=== PATIENT | female | born 1945 | race Caucasian/White ===

== ENCOUNTER → 2018-06-22 07:50 | Outpatient (CLI) | payer OTHER, SELFPAY ==
[2018-06-22 09:54] LABS: Add Manual Diff / Slide Review NO; Basophils Percent Auto 1.2 % (0-2); Eosinophils Percent Auto 3.4 % (2-4); Hemoglobin 13.2 g/dL (12.0-16.0); Lymphocytes Percent Auto 25.6 % (25-40); Mean Corpuscular HGB Conc 33.9 % (30-36); Mean Corpuscular Hemoglobin 32.5 PG (26-34); Mean Corpuscular Volume 95.9 fL (80-100); Monocytes Percent Auto 9.3 % (3-14); Neutrophils Absolute Auto 3800 /uL (3000-5900); Neutrophils Percent Auto 60.5 % (50-75); Platelet Count 261 X10^3/uL (150-400); Red Blood Cell Count 4.07 X10^6/uL (4.0-5.2); Red Cell Distribution Width 12.9 % (11.6-14.8); White Blood Cell Count 6.3 X10^3/uL (4.5-11.0)
[2018-06-22 10:21] LABS: Alanine Aminotransferase 23 IU/L (9-52); Albumin 4.3 g/dL (3.5-5.0); Albumin Globulin Ratio 1.3 (1.0-2.8); Alkaline Phosphatase 88 U/L (38-126); Aspartate Aminotransferase 22 IU/L (14-36); BUN Creatinine Ratio 17.5 (6-22); Bilirubin Total 0.4 mg/dL (0.2-1.3); Blood Urea Nitrogen 14 mg/dL (7-17); Calcium 9.9 mg/dL (8.4-10.2); Carbon Dioxide 34 mmol/L (22-32); Chloride 98 mmol/L (98-107); Cholesterol 212 mg/dL (140-199); Estimated Glomerular Filt Rate > 60.0 mL/min (>60); Globulin 3.2 g/dL (1.7-4.1); Glucose 94 mg/dL (80-110); HDL Cholesterol 97 mg/dL (40-60); HEMOLYSIS < 15 (0-50); LDL Cholesterol Calculated 87 mg/dL (<100); Potassium 4.1 mmol/L (3.4-5.1); Sodium 139 mmol/L (137-145); Total Protein 7.5 g/dL (6.3-8.2); Triglycerides 139 mg/dL (35-150)
[2018-06-22 11:11] LABS: TSH w/ Reflex to FT4 3.31 uIU/mL (0.47-4.68)
== END ==
PROVIDERS: PCP Internal Medicine; Visit Provider Internal Medicine
DX: I10 Essential (primary) hypertension (principal); Z86.39 Personal history of other endocrine, nutritional and metabolic disease
CPT/HCPCS: 36415; 80053; 80061; 84443; 85025

== ENCOUNTER → 2018-07-10 09:23 | Outpatient (CLI) | payer OTHER, SELFPAY ==
[2018-07-12 16:17] LABS: Fecal Immunochemical Test NOT DETECTED
== END ==
PROVIDERS: PCP Internal Medicine; Visit Provider Internal Medicine
DX: Z12.11 Encounter for screening for malignant neoplasm of colon (principal)
CPT/HCPCS: 82274

== ENCOUNTER → 2018-07-17 12:43 | Outpatient (CLI) | payer OTHER, SELFPAY ==
--- NOTE | 2018-07-17 | DI.MG.S_ITS ---
BILATERAL DIGITAL SCREENING MAMMOGRAM 3D/2D WITH CAD: 07/17/2018 CLINICAL: Routine screening. Family history of breast cancer. Comparison is made to exams dated: 07/11/2017 mammogram, 07/15/2016 mammogram, and 07/14/2015 mammogram - [facility]. The tissue of both breasts is heterogeneously dense. This may lower the sensitivity of mammography. Current study was also evaluated with a Computer Aided Detection (CAD) system. No significant masses, calcifications, or other findings are seen in either breast. There has been no significant interval change. IMPRESSION: NEGATIVE There is no mammographic evidence of malignancy. A 1 year screening mammogram is recommended. This exam was interpreted at Station ID: [id number]. NOTE: For mammograms, a report in lay terms will be sent to the patient. Approximately 15% of breast malignancies will not be visualized mammographically. In the management of a palpable breast mass, a negative mammogram must not discourage biopsy of a clinically suspicious lesion. Electronically Signed By: Jason beal/deena:07/17/2018 14:44:43 letter sent: Normal Exam ACR BI-RADS Category 1: Negative 3341F
== END ==
PROVIDERS: Family Provider Internal Medicine; PCP Internal Medicine; Visit Provider Internal Medicine
DX: Z12.31 Encounter for screening mammogram for malignant neoplasm of breast (principal); Z80.3 Family history of malignant neoplasm of breast
CPT/HCPCS: 77063; 77067

== ENCOUNTER → 2018-09-04 15:16 | Outpatient (CLI) | payer OTHER, SELFPAY ==
--- NOTE | 2018-09-04 15:18 | DI.RAD.S_ITS ---
PROCEDURE: XR KNEE RT 3V INDICATIONS: chronic right knee pain TECHNIQUE: A 3 views of the knee were acquired. COMPARISON: None. FINDINGS: Bones: No fractures or dislocations but there is a moderate degree of lateral compartment joint space narrowing and a mild degree of such narrowing at the medial compartment and the patellofemoral joint. No suspicious bony lesions. Soft tissues: No joint effusion. No suspicious soft tissue calcifications. IMPRESSION: No trauma found. Mild to moderate knee joint osteoarthritis involving all 3 compartments, most prominent at the lateral compartment. No effusion or loose body seen. Dictated by: Hari Ortega M.D. on 09/04/2018 at 16:32 Approved by: Hari Ortega M.D. on 09/04/2018 at 16:33
== END ==
PROVIDERS: Family Provider Internal Medicine; PCP Internal Medicine; Visit Provider Internal Medicine
DX: M25.561 Pain in right knee (principal); M17.11 Unilateral primary osteoarthritis, right knee; G89.29 Other chronic pain
CPT/HCPCS: 73562

== ENCOUNTER → 2019-07-18 11:17 | Outpatient (CLI) | payer OTHER, SELFPAY ==
--- NOTE | 2019-07-18 | DI.MG.S_ITS ---
BILATERAL DIGITAL SCREENING MAMMOGRAM 3D/2D WITH CAD: 07/18/2019 CLINICAL: Routine screening. Family history of breast cancer. Comparison is made to exams dated: 07/17/2018 mammogram, 07/11/2017 mammogram, and 07/28/2016 mammogram - [facility]. The tissue of both breasts is heterogeneously dense. This may lower the sensitivity of mammography. Current study was also evaluated with a Computer Aided Detection (CAD) system. No significant masses, calcifications, or other findings are seen in either breast. There has been no significant interval change. IMPRESSION: NEGATIVE There is no mammographic evidence of malignancy. A 1 year screening mammogram is recommended. This exam was interpreted at Station ID: [id number]. NOTE: For mammograms, a report in lay terms will be sent to the patient. Approximately 15% of breast malignancies will not be visualized mammographically. In the management of a palpable breast mass, a negative mammogram must not discourage biopsy of a clinically suspicious lesion. Electronically Signed By: Alcon mosley/deena:07/18/2019 16:51:31 letter sent: Normal Exam ACR BI-RADS Category 1: Negative 3341F
== END ==
PROVIDERS: PCP Internal Medicine; Visit Provider Internal Medicine
DX: Z13.21 Encounter for screening for nutritional disorder (principal); Z80.3 Family history of malignant neoplasm of breast
CPT/HCPCS: 77063; 77067

== ENCOUNTER → 2019-08-23 12:43 | Outpatient (CLI) | payer OTHER, SELFPAY | PROVIDERS: PCP Internal Medicine; Visit Provider Internal Medicine | DX: Z13.820 Encounter for screening for osteoporosis (principal); Z78.0 Asymptomatic menopausal state; Z90.722 Acquired absence of ovaries, bilateral | CPT/HCPCS: 77080 ==

== ENCOUNTER → 2020-12-16 17:30 | Outpatient (CLI) | payer MEDICARE, SELFPAY ==
[2020-12-16] MEDS: COVID-19 VACC #1, MRNA(MOD) 100 MCG/0.5 ML VIAL IM (18:05)
== END ==
PROVIDERS: PCP Internal Medicine; Visit Provider Internal Medicine
DX: Z23 Encounter for immunization (principal)
CPT/HCPCS: 0011A; 91301

== ENCOUNTER → 2021-01-14 12:22 | Outpatient (CLI) | payer MEDICARE, SELFPAY ==
[2021-01-14] MEDS: COVID-19 VACC #2, MRNA(MOD) 100 MCG/0.5 ML VIAL IM (12:29)
== END ==
PROVIDERS: PCP Internal Medicine; Visit Provider Internal Medicine
DX: Z23 Encounter for immunization (principal)
CPT/HCPCS: 0012A; 91301

== ENCOUNTER → 2021-09-16 17:51 | Outpatient (CLI) | payer OTHER, SELFPAY ==
--- NOTE | 2021-09-16 | DI.MG.S_ITS ---
BILATERAL DIGITAL SCREENING MAMMOGRAM 3D/2D WITH CAD: 09/16/2021 CLINICAL: Routine screening. Family history of breast cancer. Comparison is made to exams dated: 07/18/2019 mammogram, 07/17/2018 mammogram, 07/11/2017 mammogram, 07/15/2016 mammogram, and 07/14/2015 mammogram - [facility]. The tissue of both breasts is heterogeneously dense. This may lower the sensitivity of mammography. Current study was also evaluated with a Computer Aided Detection (CAD) system. No significant masses, calcifications, or other findings are seen in either breast. There has been no significant interval change. IMPRESSION: NEGATIVE There is no mammographic evidence of malignancy. A 1 year screening mammogram is recommended. This exam was interpreted at Station ID: [id number]. NOTE: For mammograms, a report in lay terms will be sent to the patient. Approximately 15% of breast malignancies will not be visualized mammographically. In the management of a palpable breast mass, a negative mammogram must not discourage biopsy of a clinically suspicious lesion. Electronically Signed By: Tariq herrmann/deena:09/17/2021 08:54:20 letter sent: Normal Exam ACR BI-RADS Category 1: Negative 3341F
== END ==
PROVIDERS: PCP Internal Medicine; Referring Provider Internal Medicine; Visit Provider Internal Medicine
DX: Z12.31 Encounter for screening mammogram for malignant neoplasm of breast (principal)
CPT/HCPCS: 77063; 77067

== ENCOUNTER → 2021-09-22 10:05 | Outpatient (CLI) | payer OTHER, SELFPAY ==
--- NOTE | 2021-09-22 | DI.RAD.S_ITS ---
PROCEDURE: XR WRIST LT MIN 3V INDICATIONS: Left Wrist Pain TECHNIQUE: 3 views of the wrist were acquired. COMPARISON: None. FINDINGS: Bones: No acute, displaced fracture. No suspicious bony lesions. Moderate to advanced arthrosis of the 1st carpometacarpal articulation. Widening of the scapholunate interval. Scaphoid view: Intact. Soft tissues: No suspicious soft tissue calcifications. IMPRESSION: No acute abnormality. Dictated by: Cb Pacheco M.D. on 09/22/2021 at 10:40 Approved by: Cb Pacheco M.D. on 09/22/2021 at 10:42
== END ==
PROVIDERS: PCP Internal Medicine; Referring Provider Internal Medicine; Visit Provider Internal Medicine
DX: M25.532 Pain in left wrist (principal)
CPT/HCPCS: 73110

== ENCOUNTER → 2022-03-01 12:25 | Outpatient (CLI) | payer OTHER, SELFPAY ==
--- NOTE | 2022-03-01 | DI.MRI.S_ITS ---
PROCEDURE: MR STROKE Pre- and post-contrast brain MRI, non-contrast brain MR angiogram, pre- and postcontrast neck MR angiogram INDICATIONS: DEMENTIA TECHNIQUE: Brain: Noncontrast axial T1 spin echo, axial T2 fast spin echo, sagittal and axial FLAIR, coronal T2 fast spin echo, axial gradient echo, axial diffusion and ADC through the brain. After the administration of contrast, axial 3D VIBE of the cranial vasculature and brain. Brain MRA: Non-contrast 3-D time of flight MR angiogram, with multiple widbsvr-nbwwwkaph-anrwccivlz (MIP) reformats performed. Neck MRA: Axial and sagittal TruFISP through the neck. Coronal dynamic MR angiogram during administration of contrast in the arterial and venous phases, with 3-dimenstional xrxouqc-esnpvywgc-zqiywqmspo (MIP) reformats constructed from subtraction images. COMPARISON: None. FINDINGS: Image quality: Excellent. BRAIN: The ventricular system and cortical sulci demonstrate atrophy, consistent for the patient's stated age. There are areas of increased T2/FLAIR signal intensity within the periventricular and subcortical white matter. There is no acute intra-or extra axial fluid collection. No acute hemorrhage, mass lesion or midline shift. Brainstem is unremarkable. There are no areas of restricted diffusion. Globes are symmetrical. Sinuses are aerated. Osseous structures are intact. BRAIN MR ANGIOGRAM: Anterior circulation: Intracranial internal carotid arteries are normal in size and enhancement. The flow within the paired anterior cerebral arteries is normal and symmetric. The flow within the middle cerebral arteries is normal and symmetric. The anterior communicating artery is seen. No stenoses, occlusions, or aneurysms. Posterior circulation: The visualized portions of the vertebral arteries demonstrate normal caliber, and join to form a normal appearing basilar artery. The flow within the posterior cerebral arteries is normal and symmetric. No stenoses, occlusions, or aneurysms. NECK MR ANGIOGRAM: The origins of the left and right common, internal and external carotid arteries demonstrate no areas of hemodynamically significant stenosis, vascular occlusion or aneurysmal dilation. Origins of the left and right vertebral arteries demonstrate no areas of hemodynamically significant stenosis, vascular occlusion or aneurysmal dilation. 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 Limited, visualized portions of the subclavian vasculature are unremarkable. IMPRESSION: 1. No acute intracranial process. 2. Moderate atrophy and chronic microvascular ischemic changes. 3. No areas of hemodynamically significant stenosis, vascular occlusion or aneurysmal dilation within the anterior or posterior circulation. 4. No areas of hemodynamically significant stenosis, vascular occlusion or aneurysmal dilation within the neck vasculature. Dictated by: Oxana Miller M.D. on 03/01/2022 at 15:25 Approved by: Oxana Miller M.D. on 03/01/2022 at 15:46
== END ==
PROVIDERS: PCP Internal Medicine; Referring Provider Internal Medicine; Visit Provider Internal Medicine
DX: F03.90 Unspecified dementia, unspecified severity, without behavioral disturbance, psychotic disturbance, mood disturbance, and anxiety (principal)
CPT/HCPCS: 70548; 70553; A9579

== ENCOUNTER → 2022-11-17 09:55 | Outpatient (CLI) | payer OTHER, SELFPAY ==
[2022-11-17 11:59] LABS: COVID19 -Nasal RAPID Negative (Negative)
== END ==
PROVIDERS: PCP Internal Medicine; Visit Provider Surgery
DX: Z20.822 Contact with and (suspected) exposure to COVID-19 (principal); Z01.812 Encounter for preprocedural laboratory examination
CPT/HCPCS: 87635; C9803

== ENCOUNTER 2022-11-18 08:10 | Day surgery (SDC) | payer OTHER, SELFPAY ==
--- NOTE | 2022-11-18 | PATH_ITS ---
[facility] Accession Number: [id number] . 01 Material submitted: . colon - CECAL POLYPS . 01 Diagnosis: A. Cecal Polyps, Polypectomy: Fragments of tubular adenoma. RICK 11/23/2022 1005 Local . 01 Electronically signed: . Darlene Buchanan MD, Pathologist NPI- [id number] . 01 Gross description: . CECAL POLYPS: Received in formalin are multiple fragment(s) of [place], soft tissue measuring 1.7 x 0.5 x 0.1 cm in aggregate submitted entirely in 1 cassette(s) /CPE 11/19/2022 0534 Local . 01 Pathologist provided ICD-10: D12.6 . 01 CPT . 502885 Performed at: 01 [facility] [address] [place] [id number] MD Alcon Marshall MD Phone: [phone]
[2022-11-18 08:30] VITALS: BP 149/86; PULSE 89; RESP 18; TEMP 36.4; O2SAT 100; BMI 21.7
[2022-11-18] MEDS: LACTATED RINGERS 1,000 ML 150 ML IV (08:35)
--- NOTE | 2022-11-18 09:10 | PM.HP.1 ---
History of Present Illness History of Present Illness Date Patient Seen: 11/18/22 Time Patient Seen: 09:10 Chief complaint: SDC Narrative: Nicolle is a 77-year-old woman who is here because of a positive fit test. She has had prior colonoscopies but she is not sure when her last 1 was. She believes no polyps were found. Patient History Medical History (Updated 11/18/22 @ 09:11 by Javon Browne MD) Actinic keratosis (~1989) Bilateral bunions (~1969) Endometriosis Hypertension (1974) Osteoarthritis (~2000) Psoriasis (2009) Urinary incontinence Uterine cancer (1998) Surgical History (Updated 07/03/18 @ 13:55 by Pau Griffiths) Anesthesia History of tonsillectomy S/P total abdominal hysterectomy and bilateral salpingo-oophorectomy (1998) Status post arthroscopy Status post bunionectomy (1987) Status post Mohs surgery (02/2008) Family & Social History Family History (Updated 07/03/18 @ 14:08 by Pau Griffiths) Father CAD (coronary artery disease) Parkinson's disease Daughter Alcoholism Korsakoff syndrome Wheelchair bound Mother Rupture of hernia Peritonitis Grandmother Breast cancer Sister No problems noted. Social History: household members spouse Tobacco & Substance use: Smoking Status Never smoker alcohol intake never Substance Use Type does not use Meds Home Medications and Allergies Home Medications Medication Instructions Recorded Confirmed Type CA PANTOTHENATE/FOLIC ACID/VIT 1 tab PO Q DAY ##0 11/29/11 09/04/18 History (MULTIVITAMIN) amlodipine 10 mg tablet 10 mg PO DAILY #90 tabs 07/04/18 11/18/22 Rx estradiol 1 mg tablet 1 mg PO QDAY #90 tabs 07/04/18 11/18/22 Rx hydrochlorothiazide 25 mg tablet 25 mg PO QDAY #90 tabs 07/04/18 11/18/22 Rx losartan 100 mg tablet 100 mg PO QDAY #90 tabs 07/04/18 11/18/22 Rx potassium chloride 10 mEq 10 meq PO [facility] #90 tabs 07/04/18 09/04/18 Rx tablet,extended release(part/cryst) (Klor-Con M) betamethasone dipropionate 0.05 % 1 applictn topical BID #30 grams 11/01/18 Rx topical ointment Allergies Allergy/AdvReac Type Severity Reaction Status Date / Time No Known Drug Allergies Allergy Unverified 09/04/18 14:15 Exam Vital Signs (past 8 hours): - 11/18/22 08:30 Temperature 97.5 F L Pulse Rate 89 Respiratory Rate 18 Blood Pressure 149/86 H Pulse Oximetry 100 Oxygen Delivery Method Room Air Oxygen Delivery Method Room Air Const General: No acute distress Assessment & Plan Assessment and plan (1) Positive FIT (fecal immunochemical test): Status: Acute Plan We discussed the risks benefits and rationale for colonoscopy and she would like to proceed. Time Spent With Patient Critical Care time: I spent a total of [] minutes of critical care time on this patient's care today; this time is exclusive of procedural time.
[2022-11-18 10:07] VITALS: BP 128/68; PULSE 81; RESP 16; TEMP 36.6; O2SAT 98
--- NOTE | 2022-11-18 10:09 | PM.OP.COLON ---
Operative Date/Time/Diagnoses Date of procedure: 11/18/22 Time of procedure: 10:10 Pre-op diagnosis: Positive fit test Post-op diagnosis: same Procedure & Clinicians Study performed: Colonoscopy Same procedure as scheduled: Yes Surgeon: Javon Browne Procedure Notes Procedure in detail: Surgeon: Javon Browne MD Anesthesia: Eddie Nelson D.O. Procedure: The patient was brought to the endoscopy suite, placed in left lateral decubitus position. The patient was connected to monitoring devices. A time-out was performed. Sedation was administered. Once the patient was adequately sedated, a digital rectal exam was performed and was normal. The scope was then inserted and advanced to the cecum where the appendiceal orifice was identified and photographed. The scope was then slowly withdrawn over greater than 6 minutes. The mucosa was thoroughly inspected. There were 2 polyps in the cecum. One was a flat polyp which was roughly 1.5 cm and was removed piecemeal using a combination of hot and cold snare. The second polyp was approximately 8 mm and more pedunculated shape and was removed with cold snare. The polyps were sent together. The rest of the colon was normal. The scope was retroflexed in the rectum. No other abnormalities were seen. The scope was straightened and removed. The patient was awakened and brought to recovery. Scope withdrawal time: 30 minutes Sedation time: 42 minutes EBL: 5 mL Findings: 1.5 cm flat polyp and 8 mm pedunculated polyp in the cecum Post-procedure Disposition: PACU
[2022-11-18 10:15] VITALS: BP 129/75; PULSE 71; RESP 13; TEMP 36.2; O2SAT 99
[2022-11-18 10:25] VITALS: BP 140/64; PULSE 71; RESP 18; TEMP 36.6; O2SAT 97
[2022-11-18 10:47] VITALS: BP 148/88; PULSE 82; RESP 16; O2SAT 98
== END 2022-11-18 10:40 | disposition home or self-care (01) ==
PROVIDERS: PCP Internal Medicine; Referring Provider Surgery; Visit Provider Surgery
PROC: 0DJD8ZZ Inspection of Lower Intestinal Tract, Via Natural or Artificial Opening Endoscopic (ICD-10-PCS; CPT 45378; principal; 2022-11-18 09:15)
DX: R19.5 Other fecal abnormalities (principal); D12.0 Benign neoplasm of cecum
CPT/HCPCS: 45385; J2704

== ENCOUNTER 2023-11-16 18:31 | Emergency (ER) | payer OTHER, SELFPAY ==
[2023-11-16 18:29] VITALS: BP 176/88; PULSE 71; RESP 16; TEMP 36.2; O2SAT 97; BMI 22.4
--- NOTE | 2023-11-16 19:52 | ED.FALL ---
HPI - Fall General Chief Complaint: Fall Stated Complaint: fall no thinners Time Seen by Provider: 11/16/23 19:12 Source: patient and family Mode of arrival: EMS Limitations: other (Dementia) History of Present Illness HPI Narrative: 78-year-old female who arrived by EMS for evaluation of what appeared to be a fall at home. Patient's states that the patient has a history of Alzheimer's. She does not remember the event. Reports no discomfort. states he was sitting on a chair watching the news when he states that he heard a commotion in the kitchen. He noticed that the patient was on the ground. No loss of consciousness. No bleeding. No reports of any injuries. He thought that throughout the day her balance has been more ?off? than what it has been although they did go for a hike today. He has been eating and drinking like normal. Patient is able to provide only a small portion of the HPI and review of systems Related Data Home Medications Medication Instructions Recorded Confirmed CA PANTOTHENATE/FOLIC ACID/VIT 1 tab PO Q DAY ##0 11/29/11 09/04/18 (MULTIVITAMIN) Previous Rx's Medication Instructions Recorded amlodipine 10 mg tablet 10 mg PO DAILY #90 tabs 07/04/18 estradiol 1 mg tablet 1 mg PO QDAY #90 tabs 07/04/18 hydrochlorothiazide 25 mg tablet 25 mg PO QDAY #90 tabs 07/04/18 losartan 100 mg tablet 100 mg PO QDAY #90 tabs 07/04/18 potassium chloride 10 mEq 10 meq PO [facility] #90 tabs 07/04/18 tablet,extended release(part/cryst) (Klor-Con M) betamethasone dipropionate 0.05 % 1 applictn topical BID #30 grams 11/01/18 topical ointment Allergies Allergy/AdvReac Type Severity Reaction Status Date / Time No Known Drug Allergies Allergy Unverified 11/16/23 18:29 Review of Systems Constitutional Constitutional: Reports system reviewed and no additional complaints, except as documented Musculoskeletal Musculoskeletal: Reports system reviewed and no additional complaints, except as documented Integumentary/Breasts Skin/Breast: Reports system reviewed and no additional complaints, except as documented Neurologic Neurologic: Reports system reviewed and no additional complaints, except as documented Patient History Medical History Bilateral bunions (~1969) Endometriosis Uterine cancer (1998) Actinic keratosis (~1989) Urinary incontinence Psoriasis (2009) Osteoarthritis (~2000) Hypertension (1974) Surgical History (Updated 07/03/18 @ 13:55 by Pau Griffiths) Anesthesia Status post Mohs surgery (02/2008) Status post bunionectomy (1987) Status post arthroscopy History of tonsillectomy S/P total abdominal hysterectomy and bilateral salpingo-oophorectomy (1998) Family History (Updated 07/03/18 @ 14:08 by Pau Griffiths) Father CAD (coronary artery disease) Parkinson's disease Daughter Alcoholism Korsakoff syndrome Wheelchair bound Mother Rupture of hernia Peritonitis Grandmother Breast cancer Sister No problems noted. Social History household members: spouse Smoking Status: Never smoker alcohol intake: never Smoking Status: Never smoker Substance Use Type: does not use Exam Initial Vital Signs Initial Vital Signs: Vital Signs Temperature 97.2 F L 11/16/23 18:29 Pulse Rate 71 11/16/23 18:29 Respiratory Rate 16 11/16/23 18:29 Blood Pressure 176/88 H 11/16/23 18:29 Pulse Oximetry 97 11/16/23 18:29 Oxygen Delivery Method Room Air 11/16/23 18:29 HENMT Head: normal to inspection and normocephalic Resp Effort & Inspection: normal respiratory effort Cardio Rate: regular rate Neuro Gait: normal gait Extrem Other: No gross deformities, is able to move all 4 extremities Course Orders Ordered: ED Orders 11/16/23 18:30 Basic Metabolic Panel Stat Complete Blood Count AUTO DIFF Stat 11/16/23 19:58 Urinalysis and Microscopic Stat Urine Culture Stat Vital Signs Vital signs: Vital Signs - 8 hr 11/16/23 18:29 11/16/23 20:26 Temperature 97.2 F L Pulse Rate 71 70 Respiratory Rate 16 18 Blood Pressure 176/88 H 187/96 H Pulse Oximetry 97 97 Oxygen Delivery Method Room Air Room Air MDM - Fall Lab Data Attestation: I reviewed the patient's lab results. 11/16/23 18:30 11/16/23 18:30 Labs: Lab Results 11/16/23 11/16/23 Range/Units 18:30 19:58 WBC 10.4 (4.5-11.0) X10^3/uL RBC 4.28 (4.0-5.2) X10^6/uL Hgb 14.0 (12.0-16.0) g/dL Hct 41.0 (36-46) % MCV 95.8 (80-100) fL MCH 32.8 (26-34) PG MCHC 34.2 (30-36) % RDW 12.4 (11.6-14.8) % Plt Count 283 (150-400) X10^3/uL Neut % (Auto) 57.8 (50-75) % Lymph % (Auto) 31.6 (25-40) % [place] % (Auto) 8.3 (3-14) % Eos % (Auto) 1.6 L (2-4) % Baso % (Auto) 0.7 (0-2) % Neut # (Auto) 6000 (8793-4892) /uL Lymph # (Auto) 3300 (5122-2603) /uL [place] # (Auto) 900 (0-900) /uL Eos # (Auto) 200 (0-450) /uL Baso # (Auto) 100 (0-100) /uL Sodium 139 (137-145) mmol/L Potassium 3.2 L (3.4-5.1) mmol/L Chloride 99 (98-107) mmol/L Carbon Dioxide 30 (22-32) mmol/L BUN 25 H (7-17) mg/dL Creatinine 0.62 (0.52-1.04) mg/dL Estimated GFR > 60 (>60) mL/min BUN/Creatinine Ratio 40.3 H (6-22) Glucose 95 (80-110) mg/dL Calcium 10.6 H (8.4-10.2) mg/dL Urine Color Yellow Urine Appearance Clear Urine pH 7.0 (4.5-8.0) Ur Specific [place] <=1.005 (1.000-1.035) Urine Protein Negative (Negative) Urine Glucose (UA) Negative (Negative) g/dL Urine Ketones Negative (NEGATIVE) Urine Occult Blood Negative (Negative) Urine Nitrate Negative (Negative) Urine Bilirubin Negative (NEGATIVE) Urine Urobilinogen 0.2 (0.2) E.U./dL Ur Leukocyte Esterase 1+ H (NEGATIVE) Urine RBC 0-1/hpf (0-5/HPF) Urine WBC 1-5/hpf (0-5/HPF) Ur Squamous Epith Cells 0-1 /hpf (0-5/HPF) Urine Bacteria Few (2-10) H (None) Ur Culture Indicated? Specimen cultured MDM Narrative Medical decision making narrative: Patient has no external signs of any injuries. I discussed with the obtaining a head CT because we are unsure as to whether not the patient actually hit her head and she is unable to provide any specific information about the fall. The would like to hold on doing that for now. She was able to ambulate here in the emergency department. states that she is much better than what she was earlier today. Her labs are unremarkable. We will hold on a further workup for now. No indication of any infection. Will discharge patient home with return precautions. expressed understanding and agreement with plan. Discharge Plan Departure Patient Disposition: Home Clinical Impression: Alzheimer's dementia, Fall Instructions: How to Prevent Falls Activity Restrictions/Additional Instructions: I recommend that she continue to take all of her medications as directed. Contact your primary care doctor for a follow-up. Return to the emergency department for new symptoms. Prescriptions: No Action CA PANTOTHENATE/FOLIC ACID/VIT (MULTIVITAMIN) 1 tab PO Q DAY Qty: 0 betamethasone dipropionate 0.05 % ointment 1 applictn TOP BID Qty: 30 0RF Rx Instructions: Apply twice daily to affected area until clear. amlodipine 10 mg tablet 10 mg PO DAILY Qty: 90 3RF estradiol 1 mg tablet 1 mg PO QDAY Qty: 90 3RF hydrochlorothiazide 25 mg tablet 25 mg PO QDAY Qty: 90 3RF losartan 100 mg tablet 100 mg PO QDAY Qty: 90 3RF potassium chloride [Klor-Con M10] 10 mEq tablet,ER particles/crystals 10 meq PO [facility] Qty: 90 3RF Referrals: Danielle Mujica ARNP [Primary Care Provider] - Stand Alone Forms: Patient Portal/API
[2023-11-16 20:02] LABS: Add Manual Diff / Slide Review NO; Basophils Absolute Auto 100 /uL (0-100); Basophils Percent Auto 0.7 % (0-2); Eosinophils Absolute Auto 200 /uL (0-450); Eosinophils Percent Auto 1.6 % (2-4); Lymphocytes Absolute Auto 3300 /uL (1100-4500); Lymphocytes Percent Auto 31.6 % (25-40); Mean Corpuscular HGB Conc 34.2 % (30-36); Mean Corpuscular Hemoglobin 32.8 PG (26-34); Mean Corpuscular Volume 95.8 fL (80-100); Monocytes Absolute Auto 900 /uL (0-900); Monocytes Percent Auto 8.3 % (3-14); Neutrophils Absolute Auto 6000 /uL (1500-7000); Neutrophils Percent Auto 57.8 % (50-75); Platelet Count 283 X10^3/uL (150-400); Red Blood Cell Count 4.28 X10^6/uL (4.0-5.2); Red Cell Distribution Width 12.4 % (11.6-14.8); White Blood Cell Count 10.4 X10^3/uL (4.5-11.0)
[2023-11-16 20:03] LABS: Appearance Urine UA CLEAR; Bilirubin Urine UA NEGATIVE (NEGATIVE); Color Urine UA YELLOW; Glucose Urine UA NEGATIVE (Negative); Ketones Urine UA NEGATIVE (NEGATIVE); Leukocyte Esterase Urine UA 1+ (NEGATIVE); Nitrite Urine UA NEGATIVE (Negative); Occult Blood Urine UA NEGATIVE (Negative); Protein Urine UA NEGATIVE (Negative); Specific Gravity Urine UA <=1.005 (1.000-1.035); Urobilinogen Urine UA 0.2 E.U./dL (0.2)
[2023-11-16 20:05] LABS: BUN Creatinine Ratio 40.3 (6-22); Blood Urea Nitrogen 25 mg/dL (7-17); Calcium 10.6 mg/dL (8.4-10.2); Carbon Dioxide 30 mmol/L (22-32); Chloride 99 mmol/L (98-107); Estimated Glomerular Filt Rate > 60 mL/min (>60); Glucose 95 mg/dL (80-110); Potassium 3.2 mmol/L (3.4-5.1); Sodium 139 mmol/L (137-145)
[2023-11-16 20:07] LABS: HEMOLYSIS 57 (0-50)
[2023-11-16 20:11] LABS: Bacteria Urine Few (2-10); Culture Indicated Urine Specimen Cultured; RBC Urine 0-1/HPF (0-5/HPF); Squamous Epithelial Cell Urine 0-1 /HPF (0-5/HPF); WBC Urine 1-5/HPF (0-5/HPF)
[2023-11-16 20:26] VITALS: BP 187/96; PULSE 70; RESP 18; O2SAT 97
== END 2023-11-16 20:34 | disposition home or self-care (01) ==
PROVIDERS: Emergency Provider Emergency Medicine; PCP Internal Medicine
DX: G30.9 Alzheimer's disease, unspecified (principal); W19.XXXA Unspecified fall, initial encounter
CPT/HCPCS: 36415; 80048; 81001; 85025; 87086; 99283

== ENCOUNTER → 2025-08-23 11:55 | Outpatient (CLI) | payer OTHER, SELFPAY ==
--- NOTE | 2025-08-23 11:58 | DI.RAD.S_ITS ---
PROCEDURE: XR CHEST 2V INDICATIONS: CHEST TECHNIQUE: 2 views of the chest were acquired. COMPARISON: None. FINDINGS: Surgical changes and devices: None. Lungs and pleura: Lungs are clear. No pleural effusions or pneumothorax. Mediastinum: Mediastinal contours are normal. Heart size is normal. Bones and chest wall: No suspicious bony abnormalities. Soft tissues appear unremarkable. IMPRESSION: No acute abnormality or evidence of metastatic disease. Dictated by: Ashish Christopher M.D. on 08/23/2025 at 13:16 Approved by: Ashish Christopher M.D. on 08/23/2025 at 13:17
== END ==
LOC: RAD 11:57
PROVIDERS: PCP Family Medicine; Referring Provider Family Medicine; Visit Provider Family Medicine
DX: E83.52 Hypercalcemia (principal); R68.89 Other general symptoms and signs
CPT/HCPCS: 71046